=== PATIENT | female | born 1995 | race Caucasian/White ===

== ENCOUNTER 2018-03-13 17:22 | Emergency (ER) | payer OTHER ==
[~2018-03-13] VITALS: Ht 167.6 cm; Wt 90.7 kg
== END 2018-03-13 19:47 | disposition home or self-care (01) ==
LOC: ER 17:22
DX: K29.70 Gastritis, unspecified, without bleeding (principal)

== ENCOUNTER 2018-07-30 15:39 | Inpatient (IN) | payer OTHER ==
[~2018-07-30] VITALS: Ht 160 cm; Wt 2.7 kg
[2018-07-30] MEDS ORDERED: FOLIC ACID20 MG PO (21:36)
== END 2018-08-02 10:36 | DRG 788 ==
LOC: OBS/DEL 15:39 → LDR 21:33 → OB/GYN 07-31 14:35
PROVIDERS: ADMIT Obstetrics & Gynecology
PROC: 4A1HXCZ Monitoring of Products of Conception, Cardiac Rate, External Approach (ICD-10-PCS; 2018-07-30)
PROC: BY4FZZZ Ultrasonography of Third Trimester, Single Fetus (ICD-10-PCS; 2018-07-30)
PROC: 4A033R1 Measurement of Arterial Saturation, Peripheral, Percutaneous Approach (ICD-10-PCS; 2018-07-31)
PROC: 10D00Z1 Extraction of Products of Conception, Low, Open Approach (ICD-10-PCS; principal; 2018-07-31 12:00)
DX: O76 Abnormality in fetal heart rate and rhythm complicating labor and delivery (principal); Z3A.38 38 weeks gestation of pregnancy; Z37.0 Single live birth; O82 Encounter for cesarean delivery without indication